=== PATIENT | male | born 2000 | race Caucasian/White ===

== ENCOUNTER 2024-01-26 00:49 | Emergency (ER) | payer BC, SELFPAY ==
[2024-01-26 00:49] VITALS: BMI 22.1
--- NOTE | 2024-01-26 01:56 | ED.GENMED ---
History of Present Illness
General
Chief Complaint: Male Genito-Urinary Symptoms
Source: patient
Exam Limitations: none
Time Seen by Provider: 01/26/24 01:34
Nursing documentation reviewed up to this point in time: agreed with
Travel History
Have you had any contact with someone who has COVID-19?: No
Do you have any symptoms of coronavirus? Fever > 100 degrees, chills, cough, shortness of breath, sore throat, loss of taste or smell, muscle aches, or headache?: No
History of Present Illness
History of Present Illness:
23-year-old male presents Emergency Department due to pain in his right testicle. He was hit while playing basketball. The pain has been increasing since, and is now constant with any movement or contact.
Past History
Past History
ED Past Medical History: Asthma and Other (Migraine headaches)
ED Past Surgical History: None
Social History
Tobacco: Non-smoker
Alcohol: None
Drug: Marijuana (Medical)
Review of Systems
Review of Systems
Allergies reviewed?: Yes
All Other Systems: Not applicable
Constitutional: Reports no symptoms
EENT: Reports no symptoms
Respiratory: Reports no symptoms
Cardiac: Reports no symptoms
ABD/GI: Reports no symptoms
: Reports other (Right testicle pain)
Musculoskeletal: Reports no symptoms
Skin: Reports no symptoms
Neurological: Reports no symptoms
Endocrine: Reports no symptoms
Hematologic/Lymphatic: Reports no symptoms
Psychiatric: Reports no symptoms
Phy Exam
Physical Exam
Physical Exam:
Physical Exam
General: no apparent distress, not acutely ill
Neck: supple. no meningeal signs. normal posterior pharynx
Heart: equal radial pulses.
HEENT: Pupils equal round reactive to light, EOMI
Lungs: no acute respiratory distress. clear bilaterally
Abdomen: normal bowel sounds. not tender. no CVAT
: no lesions, nl bilateral cremasteric reflexes, right testicle tender to palpation, no masses
Neuro: alert and oriented. no focal neurological deficits
Skin: no rash
Psychiatric: well kept. interactive and cooperative
Extremities: no edema. good distal pulses
Course
Orders/Labs/Results
Orders:
Orders
01/26/24 01:55
US Scrotum Urgent
Comment:
Reason For Exam: right testicular pain, hit in groin, 1 wk
Vital Signs
Initial and Last Documented VS:
Initial Vital Signs
Temp Pulse Resp Pulse Ox
97.6 F 60 18 98
01/26/24 00:55 01/26/24 00:55 01/26/24 00:55 01/26/24 00:55
Last Documented Vital Signs
Temp Pulse Resp Pulse Ox
97.6 F 60 18 98
01/26/24 00:55 01/26/24 00:55 01/26/24 00:55 01/26/24 00:55
MDM/Problems Addressed
Differential Diagnosis Includes:
Testicular torsion, testicular hematoma
MDM/Problems Addressed:
23-year-old male with right testicular contusion. No hernia felt. No signs of infection. Stable for discharge.
*Radiology
Radiology exam reviewed: radiology read reviewed (Ultrasound scrotum no acute findings)
*Pulse Oximetry
Patient hypoxic: no
*EKG
Interpreted by ED Provider?: NA
*Architectural Designer Interpretation
Rate: Architectural Designer- N/A
*Critical Care Note
Total Time (30-74mins, 75-104mins- exclusive of procedures): Not Applicable
ED Attending Note
-
Portions of this chart may have been created with voice recognition software.� Occasional wrong word or��sound alike� substitutions may have occurred due to the inherent limitations of voice recognition software.
Discharge Plan
Departure
Patient Disposition: Home (Routine Discharge)
Date of Disposition: 01/26/24
Time of Disposition: 02:58
Patient with high blood pressure during this ER visit?: No
Condition: Good
Discharge Problem:
Pain in right testicle
Instructions: Testicular Injury
Prescriptions:
No Action
ondansetron 4 mg tablet,disintegrating
4 mg PO Q8H PRN (Reason: nausea and vomiting) 3 Days Qty: 9 0RF
Referrals:
Jenna Moncada CRNP [Family Provider] -
Eliazar Nicole MD [Active] - Call in 1-3 days for appt
Interventions
Interventions:
*Risk Screen - Suicide Last Done: 01/26/24 00:55
*General Assessment Last Done: 01/26/24 02:21
*Neglect/Abuse Screening Last Done: 01/26/24 00:55
ED- Fall Risk Assessment Last Done: 01/26/24 02:21
*ED COVID-19 Vaccine History Last Done: 01/26/24 02:38
ED-Male Genitourinary Assessment Last Done: 01/26/24 02:21
Discharge Date and Time
Print Language: BARBADIAN
[2024-01-26 03:34] VITALS: BP 110/75
== END 2024-01-26 03:35 | disposition home or self-care (01) ==
LOC: EMR 00:49
PROVIDERS: EMERGENCY PHYSICIAN Emergency Medicine; FAMILY PHYSICIAN Nurse Practitioner Family
DX: N50.811 Right testicular pain (principal); S30.22XA Contusion of scrotum and testes, initial encounter; X58.XXXA Exposure to other specified factors, initial encounter
CPT/HCPCS: 99284; 76870; 93976

== ENCOUNTER → 2024-09-22 22:00 | Outpatient (REF) | payer BC, SELFPAY | LOC: DHSLP 22:00 | PROVIDERS: ATTENDING PHYSICIAN Internal Medicine; FAMILY PHYSICIAN Nurse Practitioner Family | DX: G47.19 Other hypersomnia (principal); G47.8 Other sleep disorders; R06.83 Snoring; G47.53 Recurrent isolated sleep paralysis | CPT/HCPCS: 95810 ==

== ENCOUNTER → 2024-09-23 22:00 | Outpatient (REF) | payer BC, SELFPAY | LOC: DHSLP 22:00 | PROVIDERS: ATTENDING PHYSICIAN Internal Medicine; FAMILY PHYSICIAN Nurse Practitioner Family | DX: G47.19 Other hypersomnia (principal) | CPT/HCPCS: 95805 ==